=== PATIENT | female | born 1960 | race Caucasian/White ===

== ENCOUNTER 2017-01-16 23:28 | Emergency (ER) | payer SELFPAY ==
[~2017-01-16] VITALS: Ht 160 cm; Wt 59.0 kg
[2017-01-17 00:01] VITALS: BP 120/96
== END 2017-01-17 03:15 | disposition left against medical advice (07) ==
LOC: EDBD 23:28 → ER 23:30
DX: F41.9 Anxiety disorder, unspecified (principal); Z53.21 Procedure and treatment not carried out due to patient leaving prior to being seen by health care provider

== ENCOUNTER 2017-01-17 06:57 | Emergency (ER) | payer SELFPAY ==
[~2017-01-17] VITALS: Ht 162.6 cm; Wt 59.0 kg
[2017-01-17 07:15] VITALS: BP 135/72
== END 2017-01-17 08:25 | disposition home or self-care (01) ==
LOC: ER 06:57
DX: M79.1 Myalgia (principal); M54.2 Cervicalgia; F17.210 Nicotine dependence, cigarettes, uncomplicated; F12.10 Cannabis abuse, uncomplicated; F41.9 Anxiety disorder, unspecified; Z88.6 Allergy status to analgesic agent; Z88.0 Allergy status to penicillin; Z91.018 Allergy to other foods

== ENCOUNTER 2017-01-25 01:09 | Emergency (ER) | payer SELFPAY ==
[~2017-01-25] VITALS: Ht 162.6 cm; Wt 50.3 kg
[2017-01-25 01:11] VITALS: BP 96/75
== END 2017-01-25 07:02 | disposition left against medical advice (07) ==
LOC: ER 01:19
DX: Z01.818 Encounter for other preprocedural examination (principal); Z53.21 Procedure and treatment not carried out due to patient leaving prior to being seen by health care provider

== ENCOUNTER 2018-01-25 14:13 | Emergency (ER) | payer OTHER ==
[~2018-01-25] VITALS: Ht 154.9 cm; Wt 54.4 kg
[2018-01-25 14:55] VITALS: BP 142/86
[2018-01-25 15:54] LABS: Basophils # (auto) 0 uL; Basophils % (auto) 0.4 % (0.0-2.0); Eosinophils # (auto) 0.1 uL; Eosinophils % (auto) 1.9 % (0.0-7.0); Hematocrit 39.4 % (36.0-46.0); Hemoglobin 12.9 g/dL (12.2-16.2); Lymphocytes # (auto) 3.3 uL; Lymphocytes % (auto) 44.5 % (10.0-50.0); Mean Corpuscular Hemoglobin 30.7 pg (28.0-32.0); Mean Corpuscular Hgb Conc. 32.8 g/dL (32.0-36.0); Mean Corpuscular Volume 93.5 fL (80.0-100.0); Monocytes # (auto) 0.5 uL; Monocytes % (auto) 6.2 % (0.0-12.0); Neutrophils # (auto) 3.5 uL; Nucleated Red Blood Cells % 0.1 %; Platelet Count (auto) 405 10^3/uL (140-450); Red Blood Cells 4.21 10^6/uL (4.0-5.20); White Blood Cell 7.5 10^3/uL (4.4-10.8)
[2018-01-25 16:05] LABS: Chloride 111 mmol/L (98-107); Potassium 3.5 mmol/L (3.5-5.1); Sodium 140 mmol/L (136-145)
[2018-01-25 16:09] LABS: Alanine Aminotransferase 24 U/L (13-56); Albumin 3.6 g/dL (3.4-5.0); Anion Gap 6 (5-15); Aspartate Aminotransferase 19 U/L (15-37); BUN/Creatinine Ratio 21.3; Blood Urea Nitrogen 17 mg/dL (7-18); Calcium 8.8 mg/dL (8.5-10.1); Carbon Dioxide 23 mmol/L (21-32); GFR African American 96 mL/min; GFR Non-African American 79 mL/min; Glucose 79 mg/dL (74-106)
[2018-01-25 16:14] LABS: Alkaline Phosphatase 83 U/L (45-117); Bilirubin, Total 0.3 mg/dL (0.2-1.0); Total Protein 7.7 g/dL (6.4-8.2)
== END 2018-01-26 03:25 | disposition left against medical advice (07) ==
LOC: EDUNIT# 14:13 → ER 14:13
DX: F41.9 Anxiety disorder, unspecified (principal); Z53.21 Procedure and treatment not carried out due to patient leaving prior to being seen by health care provider
CPT/HCPCS: 36415; 80053; 80307; 84484; 85025; 93005

== ENCOUNTER 2019-12-26 14:31 | Emergency (ER) | payer OTHER ==
[~2019-12-26] VITALS: Ht 160 cm; Wt 49.9 kg
[2019-12-26 14:39] VITALS: BP 114/71
[2019-12-26] MEDS ORDERED: KETOROLAC TROMETH 60MG/2ML VIAL IM ONE (16:45)
== END 2019-12-26 17:17 | disposition home or self-care (01) ==
LOC: ER 14:31
DX: S20.212A Contusion of left front wall of thorax, initial encounter (principal); F17.210 Nicotine dependence, cigarettes, uncomplicated; Z88.0 Allergy status to penicillin; Z88.6 Allergy status to analgesic agent; Z88.8 Allergy status to other drugs, medicaments and biological substances; W01.0XXA Fall on same level from slipping, tripping and stumbling without subsequent striking against object, initial encounter; Y93.89 Activity, other specified; Y92.89 Other specified places as the place of occurrence of the external cause; Y99.8 Other external cause status
CPT/HCPCS: 71101; 93005; 96372; 99283; J1885

== ENCOUNTER 2020-03-22 09:51 | Emergency (ER) | payer OTHER ==
[~2020-03-22] VITALS: Ht 160 cm; Wt 46.3 kg
[2020-03-22 10:03] VITALS: BP 131/84
[2020-03-22] MEDS: ACETAMINOPHEN 325 MG TAB PO ONE ×2 (11:03→11:05)
[2020-03-22] MEDS ORDERED: KETOROLAC TROMETH 60MG/2ML VIAL IM ONE ×2 (11:15→11:30)
== END 2020-03-22 12:05 | disposition home or self-care (01) ==
LOC: ER 09:51 → EDBD 09:51 → ER 12:05
DX: S30.0XXA Contusion of lower back and pelvis, initial encounter (principal); J03.90 Acute tonsillitis, unspecified; J44.9 Chronic obstructive pulmonary disease, unspecified; F17.210 Nicotine dependence, cigarettes, uncomplicated; Z88.0 Allergy status to penicillin; Z88.1 Allergy status to other antibiotic agents; Z88.2 Allergy status to sulfonamides; Z88.5 Allergy status to narcotic agent; Z88.6 Allergy status to analgesic agent; Z88.8 Allergy status to other drugs, medicaments and biological substances
CPT/HCPCS: 71045; 72220; 96372; 99284; J1885

== ENCOUNTER 2020-04-07 11:25 | Emergency (ER) | payer OTHER ==
[~2020-04-07] VITALS: Ht 162.6 cm; Wt 40.8 kg
[2020-04-07] MEDS ORDERED: ONDANSETRON ODT 4 MG TAB PO ONE (12:00)
[2020-04-07 12:40] LABS: Alcohol, Urine < 3.0 mg/dL (0-10); Amphetamine Screen, Urine POSITIVE (NEGATIVE); Barbiturate Scree,Urine NEGATIVE (NEGATIVE); Benzodiazephine Screen, Urine NEGATIVE (NEGATIVE); Cannabinoid Screen, Urine POSITIVE (NEGATIVE); Cocaine Screen, Urine NEGATIVE (NEGATIVE)
[2020-04-07 12:48] LABS: Opiate Scree,Urine NEGATIVE (NEGATIVE); Phencyclidine Screen, Urine NEGATIVE (NEGATIVE)
[2020-04-07 13:02] LABS: Urine Bacteria NONE SEEN /hpf (None Seen); Urine Blood Negative /uL (Negative); Urine Specific Gravity 1.023 (1.001-1.035); Urine WBC <1 /hpf (0 - 5)
[2020-04-07 13:16] LABS: Basophils # (auto) 0 10 ^3/uL (0-0.2); Basophils % (auto) 0.6 % (0.0-2.0); Eosinophils # (auto) 0.1 10 ^3/uL (0-0.8); Eosinophils % (auto) 1.7 % (0.0-7.0); Hematocrit 38.1 % (36.0-46.0); Hemoglobin 12.4 g/dL (12.2-16.2); Lymphocytes # (auto) 2.3 10 ^3/uL (0.4-5.4); Lymphocytes % (auto) 43.3 % (10.0-50.0); Mean Corpuscular Hemoglobin 31.1 pg (28.0-32.0); Mean Corpuscular Hgb Conc. 32.5 g/dL (32.0-36.0); Mean Corpuscular Volume 95.7 fL (80.0-100.0); Monocytes # (auto) 0.5 10 ^3/uL (0-1.3); Monocytes % (auto) 8.6 % (0.0-12.0); Neutrophils # (auto) 2.5 10 ^3/uL (1.6-8.6); Neutrophils % (auto) 45.8 % (37.0-80.0); Nucleated Red Blood Cells % 0.1 %; Platelet Count (auto) 246 10^3/uL (140-450); Red Blood Cells 3.99 10^6/uL (4.0-5.20); Red Cell Distribution Width 14.4 % (11.8-14.3); White Blood Cell 5.4 10^3/uL (4.4-10.8)
[2020-04-07 13:32] LABS: Albumin 3.7 g/dL (3.4-5.0); Calcium 8.6 mg/dL (8.5-10.1); Potassium 3.9 mmol/L (3.5-5.1)
[2020-04-07 13:41] LABS: BUN/Creatinine Ratio 25.4; Bilirubin, Total 0.4 mg/dL (0.2-1.0); Total Protein 7.3 g/dL (6.4-8.2)
== END 2020-04-07 14:50 | disposition left against medical advice (07) ==
LOC: ER 11:25
DX: F15.10 Other stimulant abuse, uncomplicated (principal); F12.10 Cannabis abuse, uncomplicated; F17.210 Nicotine dependence, cigarettes, uncomplicated; J44.9 Chronic obstructive pulmonary disease, unspecified; Z90.710 Acquired absence of both cervix and uterus; Z88.0 Allergy status to penicillin; Z88.1 Allergy status to other antibiotic agents; Z88.2 Allergy status to sulfonamides; Z88.6 Allergy status to analgesic agent; Z88.8 Allergy status to other drugs, medicaments and biological substances
CPT/HCPCS: 36415; 80053; 80307; 81001; 83690; 85025; 99283; Q0162

== ENCOUNTER 2020-04-12 22:53 | Inpatient (IN) | payer OTHER ==
[~2020-04-12] VITALS: Ht 160 cm; Wt 45.0 kg
[2020-04-12 23:38] LABS: Basophils # (auto) 0.1 10 ^3/uL (0-0.2); Eosinophils # (auto) 0.1 10 ^3/uL (0-0.8); Hematocrit 34.2 % (36.0-46.0); Hemoglobin 11.4 g/dL (12.2-16.2); Lymphocytes # (auto) 2.2 10 ^3/uL (0.4-5.4); Lymphocytes % (auto) 42.4 % (10.0-50.0); Mean Corpuscular Hgb Conc. 33.5 g/dL (32.0-36.0); Mean Corpuscular Volume 95.5 fL (80.0-100.0); Monocytes # (auto) 0.4 10 ^3/uL (0-1.3); Neutrophils # (auto) 2.4 10 ^3/uL (1.6-8.6); Neutrophils % (auto) 47.6 % (37.0-80.0); Nucleated Red Blood Cells % 0.1 %; Platelet Count (auto) 237 10^3/uL (140-450); Red Blood Cells 3.58 10^6/uL (4.0-5.20); Red Cell Distribution Width 14.4 % (11.8-14.3); White Blood Cell 5.1 10^3/uL (4.4-10.8)
[2020-04-12 23:55] LABS: Alanine Aminotransferase 18 U/L (13-56); Albumin 3.2 g/dL (3.4-5.0); Anion Gap 6 (5-15); Aspartate Aminotransferase 13 U/L (15-37); BUN/Creatinine Ratio 27.2; Blood Urea Nitrogen 22 mg/dL (7-18); Calcium 8.2 mg/dL (8.5-10.1); Carbon Dioxide 23 mmol/L (21-32); Chloride 110 mmol/L (98-107); GFR African American 93 mL/min; GFR Non-African American 77 mL/min; Glucose 87 mg/dL (74-106); Potassium 3.5 mmol/L (3.5-5.1); Sodium 139 mmol/L (136-145)
[2020-04-13] LABS: Alkaline Phosphatase 73 U/L (45-117); Bilirubin, Total 0.3 mg/dL (0.2-1.0); Total Protein 6.7 g/dL (6.4-8.2)
[2020-04-13] MEDS ORDERED: ONDANSETRON HCL 4 MG/2 ML VIAL IV PRN (04:15)
[2020-04-13] MEDS ORDERED: ACETAMINOPHEN 325 MG TAB PO PRN (04:15)
[2020-04-13] MEDS ORDERED: NITROGLYCERIN 0.4 MG SL TAB SL PRN (04:15)
[2020-04-13] MEDS ORDERED: MORPHINE SULF INJ 2 MG/ML SYRINGE 1ML IV PRN (04:15)
[2020-04-13] MEDS ORDERED: CARVEDILOL 3.125 MG TAB PO ONE (05:30)
[2020-04-13] MEDS ORDERED: ASPirin 81 mg TAB PO ONE (05:30)
[2020-04-13] MEDS ORDERED: LISINOPRIL 10 MG TAB PO ONE (05:30)
--- NOTE | 2020-04-13 07:20 | NUR ---
OPENING SHIFT NOTES Assumed care of patient from night warehouse manager TYLOR Duran. Patient is resting in bed comfortably, no signs of distress noted, chest rise and fall is symmetrical, breathing is even and unlabored. Bed is locked, in the lowest position, side rails up x2 and call light is in reach.
--- NOTE | 2020-04-13 07:39 | NUR ---
PAGED HOSPITALIST REGARDING CARDIAC CONSULT Patient was admitted for chest pain, troponin is negative x2, pending 3rd troponin, Per MD Franco no cardiac consult at this time.
--- NOTE | 2020-04-13 08:16 | NUR ---
PATIENT UPDATED ON POC Verbalized understanding, all questions answered. Call light is in reach. Patient was encouraged to call for assistance as needed.
[2020-04-13 09:40] LABS: Basophils # (auto) 0 10 ^3/uL (0-0.2); Basophils % (auto) 0.6 % (0.0-2.0); Eosinophils # (auto) 0.1 10 ^3/uL (0-0.8); Eosinophils % (auto) 2.5 % (0.0-7.0); Hematocrit 38.9 % (36.0-46.0); Hemoglobin 12.5 g/dL (12.2-16.2); Lymphocytes # (auto) 1.8 10 ^3/uL (0.4-5.4); Lymphocytes % (auto) 34.7 % (10.0-50.0); Mean Corpuscular Hemoglobin 31.2 pg (28.0-32.0); Mean Corpuscular Hgb Conc. 32.1 g/dL (32.0-36.0); Mean Corpuscular Volume 97.2 fL (80.0-100.0); Monocytes # (auto) 0.3 10 ^3/uL (0-1.3); Monocytes % (auto) 6.3 % (0.0-12.0); Neutrophils # (auto) 2.8 10 ^3/uL (1.6-8.6); Neutrophils % (auto) 55.9 % (37.0-80.0); Nucleated Red Blood Cells % 0.1 %; Platelet Count (auto) 236 10^3/uL (140-450); Red Blood Cells 4.01 10^6/uL (4.0-5.20); Red Cell Distribution Width 14.3 % (11.8-14.3); White Blood Cell 5.1 10^3/uL (4.4-10.8)
[2020-04-13] MEDS: DOCUSATE SOD 100 MG CAP PO SCH (09:43)
[2020-04-13] MEDS: ASPirin 81 mg TAB PO SCH (09:43)
[2020-04-13] MEDS: LISINOPRIL 10 MG TAB PO SCH (09:44)
[2020-04-13] MEDS: CARVEDILOL 3.125 MG TAB PO SCH ×2 (09:44→22:09)
[2020-04-13] MEDS: CLOPIDOGREL BISULFATE 75 MG TAB PO SCH (09:44)
[2020-04-13 10:00] LABS: BUN/Creatinine Ratio 31.8; Calcium 8.5 mg/dL (8.5-10.1); Potassium 3.7 mmol/L (3.5-5.1)
[2020-04-13] MEDS: IPRATROPIUM BROM 0.5 MG/2.5ML INH SOL NEB PRN ×2 (10:24→10:47)
[2020-04-13] MEDS: ALBUTEROL SULF 2.5 MG/0.5ML(0.5%) NEB SOLN NEB PRN ×2 (10:24→10:47)
[2020-04-13 13:00] VITALS: BP 102/64
--- NOTE | 2020-04-13 13:08 | NUR ---
PATIENT AMBULATING AROUND THE UNIT With a steady gait, no signs of distress noted.
--- NOTE | 2020-04-13 15:03 | NUR ---
CORDELL AT BEDSIDE updated on the patient status, plan of care reviewed with patient and she verbalized understanding. New order for nicotine patch 14gm/24h.
[2020-04-13] MEDS ORDERED: NICOTINE 14 MG/24HR TOPICAL PATCH TD SCH (15:15)
--- NOTE | 2020-04-13 16:39 | NUR ---
PATIENT COMPLAINING OF ITCHING AT NICOTINE PATCH SITE NEW ORDER FOR 7GM/24H PATCH OBTAINED FROM CORDELL.
[2020-04-13 17:00] VITALS: BP 104/67
--- NOTE | 2020-04-13 17:02 | NUR ---
RADIOGRAPHIC TECHNOLOGIST AT BEDSIDE
[2020-04-13] MEDS: NICOTINE 7MG/24HR TOPICAL PATCH TD SCH (17:19)
--- NOTE | 2020-04-13 19:05 | NUR ---
Opening Shift Note Assumed care of patient, awake and alert. No S/S of distress/SOB or pain. Patient eating dinner. Instructed on POC and to call for assist PRN, will continue to monitor for changes Q1hr and PRN.
[2020-04-13 20:00] VITALS: BP 124/69
--- NOTE | 2020-04-13 20:20 | NUR ---
AMA Patient signed AMA to go outside. Educated on the risk or AMA.
[2020-04-13 22:00] VITALS: BP 124/69
[2020-04-13] MEDS: ATORVASTATIN 20 MG TAB PO SCH (22:10)
[2020-04-14 06:19] LABS: Basophils # (auto) 0 10 ^3/uL (0-0.2); Basophils % (auto) 0.9 % (0.0-2.0); Eosinophils # (auto) 0.2 10 ^3/uL (0-0.8); Eosinophils % (auto) 4.3 % (0.0-7.0); Hematocrit 38.8 % (36.0-46.0); Hemoglobin 12.8 g/dL (12.2-16.2); Lymphocytes # (auto) 1.7 10 ^3/uL (0.4-5.4); Lymphocytes % (auto) 46.1 % (10.0-50.0); Mean Corpuscular Hemoglobin 31.8 pg (28.0-32.0); Mean Corpuscular Hgb Conc. 33.1 g/dL (32.0-36.0); Monocytes # (auto) 0.3 10 ^3/uL (0-1.3); Monocytes % (auto) 8.4 % (0.0-12.0); Neutrophils # (auto) 1.5 10 ^3/uL (1.6-8.6); Neutrophils % (auto) 40.3 % (37.0-80.0); Nucleated Red Blood Cells % 0.1 %; Platelet Count (auto) 277 10^3/uL (140-450); Red Blood Cells 4.04 10^6/uL (4.0-5.20); Red Cell Distribution Width 14.2 % (11.8-14.3); White Blood Cell 3.8 10^3/uL (4.4-10.8)
[2020-04-14 06:31] LABS: Chloride 107 mmol/L (98-107); Potassium 3.8 mmol/L (3.5-5.1); Sodium 137 mmol/L (136-145)
[2020-04-14 07:02] LABS: Anion Gap 6 (5-15); BUN/Creatinine Ratio 30.6; Blood Urea Nitrogen 19 mg/dL (7-18); Calcium 9.1 mg/dL (8.5-10.1); Carbon Dioxide 24 mmol/L (21-32); GFR African American 127 mL/min; GFR Non-African American 105 mL/min; Glucose 88 mg/dL (74-106)
--- NOTE | 2020-04-14 07:10 | NUR ---
Closing Note Patient status unchanged, endorsed care to dayshift nurse.
--- NOTE | 2020-04-14 07:30 | NUR ---
RECEIVED REPORT FROM NIGHT NURSE. PATENT RESTING IN BED, NO DISTRESS NOTED. WILL CONTINUE TO MONITOR.
[2020-04-14 09:00] VITALS: BP 99/54
[2020-04-14] MEDS: ASPirin 81 mg TAB PO SCH (09:46)
[2020-04-14] MEDS: DOCUSATE SOD 100 MG CAP PO SCH (09:46)
[2020-04-14] MEDS: CLOPIDOGREL BISULFATE 75 MG TAB PO SCH (09:46)
[2020-04-14] MEDS: NICOTINE 7MG/24HR TOPICAL PATCH TD SCH (09:46)
[2020-04-14] MEDS: CARVEDILOL 3.125 MG TAB PO SCH ×2 (10:00→21:23)
[2020-04-14] MEDS: LISINOPRIL 10 MG TAB PO SCH (10:00)
--- NOTE | 2020-04-14 10:00 | NUR ---
PATIENT REFUSED 1000 BLOOD PRESSURE MEDICATIONS. STATED THAT HER BLOOD PRESSURE WAS TOO LOW TO TAKE IT. BLOOD PRESSURE 99/54,
--- NOTE | 2020-04-14 11:40 | NUR ---
DOCTOR LANDA AT BEDSIDE.
[2020-04-14 13:00] VITALS: BP 109/71
[2020-04-14 17:00] VITALS: BP 111/57
[2020-04-14] MEDS: ALBUTEROL SULF 2.5 MG/0.5ML(0.5%) NEB SOLN NEB PRN (20:26)
[2020-04-14] MEDS: IPRATROPIUM BROM 0.5 MG/2.5ML INH SOL NEB PRN (20:26)
[2020-04-14] MEDS: ATORVASTATIN 20 MG TAB PO SCH (21:23)
[2020-04-14 22:00] VITALS: BP 91/60
[2020-04-15] VITALS (7 sets, daily range): BP systolic 81–103; BP diastolic 61–79
--- NOTE | 2020-04-15 03:45 | NUR ---
Chest Pain Patient c/o 5/10 chest pain/discomfort "Its like a pressure on my chest".Patient place on 2L NC. Vital signs stable BP-113/68, MAP-86, HR-71, O-94%, T-98.3. EKG done "Abnormal results". Patient given 1st dose of nitro. After 5 mins patient stated to feel better "my cp is a 2-3" BP 98/71, HR-73. Patient refused 2nd dose of nitro. Will continue to monitor.
[2020-04-15 05:37] LABS: Basophils # (auto) 0 10 ^3/uL (0-0.2); Basophils % (auto) 0.7 % (0.0-2.0); Eosinophils # (auto) 0.2 10 ^3/uL (0-0.8); Eosinophils % (auto) 4.2 % (0.0-7.0); Hematocrit 40.6 % (36.0-46.0); Hemoglobin 13.6 g/dL (12.2-16.2); Lymphocytes # (auto) 1.9 10 ^3/uL (0.4-5.4); Lymphocytes % (auto) 49.3 % (10.0-50.0); Mean Corpuscular Hemoglobin 31.7 pg (28.0-32.0); Mean Corpuscular Hgb Conc. 33.4 g/dL (32.0-36.0); Mean Corpuscular Volume 94.9 fL (80.0-100.0); Monocytes # (auto) 0.3 10 ^3/uL (0-1.3); Monocytes % (auto) 8.1 % (0.0-12.0); Neutrophils # (auto) 1.4 10 ^3/uL (1.6-8.6); Neutrophils % (auto) 37.7 % (37.0-80.0); Nucleated Red Blood Cells % 0.1 %; Platelet Count (auto) 298 10^3/uL (140-450); Red Blood Cells 4.28 10^6/uL (4.0-5.20); Red Cell Distribution Width 14.1 % (11.8-14.3); White Blood Cell 3.8 10^3/uL (4.4-10.8)
[2020-04-15 06:00] LABS: BUN/Creatinine Ratio 40.7; Calcium 9.3 mg/dL (8.5-10.1); Potassium 3.8 mmol/L (3.5-5.1)
--- NOTE | 2020-04-15 06:43 | NUR ---
Respiratory note: NO PRN TX GIVEN AT THIS TIME, SPO2 95% ON RA, HR 62, RR 18.
--- NOTE | 2020-04-15 07:27 | NUR ---
Closing Note Patient status unchanged, endorsed care to dayshift nurse.
[2020-04-15] MEDS ORDERED: ADENOSINE 38 MG in GIVE UN-DILUTED 0 ML IV STA (08:45)
--- NOTE | 2020-04-15 09:04 | NUR ---
Assessment Regarding social service consult for homeless and advance directive information. Tele psych is recommended to assess mental status and will look into calling the felt hat steamer for print identification.
[2020-04-15] MEDS: CARVEDILOL 3.125 MG TAB PO SCH ×2 (09:13→21:27)
[2020-04-15] MEDS: LISINOPRIL 10 MG TAB PO SCH (09:13)
[2020-04-15] MEDS: ASPirin 81 mg TAB PO SCH (09:14)
[2020-04-15] MEDS: DOCUSATE SOD 100 MG CAP PO SCH (09:15)
[2020-04-15] MEDS: NICOTINE 7MG/24HR TOPICAL PATCH TD SCH (09:15)
[2020-04-15] MEDS: CLOPIDOGREL BISULFATE 75 MG TAB PO SCH (09:15)
[2020-04-15] MEDS ORDERED: SODIUM CHLORIDE 0.9% 250 ML IV ONE (13:30)
[2020-04-15] MEDS ORDERED: SODIUM CHLORIDE 0.9% 1,000 ML IV ONE (17:00)
--- NOTE | 2020-04-15 19:38 | NUR ---
Respiratory note: PT RECIEVED ON RA. PT IS AWAKE AND ALERT AT THIS TIME. NO RESP DISTRESS NOTED. PRN TX NOT INDICATED. SPO2 94%, HR 105, RR 18. BS CLR/DIM T/O. WILL CONTINUE TO MONITOR PT T/O SHIFT.
[2020-04-15] MEDS: ATORVASTATIN 20 MG TAB PO SCH (21:27)
[2020-04-15] MEDS ORDERED: risperiDONE 1 MG TAB PO SCH (22:00)
[2020-04-15] MEDS ORDERED: lamoTRIgine 25 MG TAB PO SCH (22:00)
--- NOTE | 2020-04-15 23:59 | NUR ---
No IV Access Patient ask for IV to be removed, patient stated "I don't want it, its on my dominate hand a keep bumping my hand, i want it off". Patient educated on the need to have IV in the hospital, patient agree to IV attempt. After 3 attempts patient got agitated and aggressive, patient stated "I don't want no more tries, i don't want it, i done, I will smack you if you try". Patient educated once again in the need for IV access but continues to refused. Paged hospitalist, waiting to call back.
--- NOTE | 2020-04-16 00:38 | NUR ---
Hospitalist Aware Hospitalist Curtis awared, no new orders given. Will continue to monitor.
[2020-04-16 05:09] VITALS: BP 125/70
[2020-04-16 06:12] LABS: Basophils # (auto) 0 10 ^3/uL (0-0.2); Basophils % (auto) 0.9 % (0.0-2.0); Eosinophils # (auto) 0.2 10 ^3/uL (0-0.8); Eosinophils % (auto) 4.5 % (0.0-7.0); Hematocrit 39.7 % (36.0-46.0); Hemoglobin 13.3 g/dL (12.2-16.2); Lymphocytes # (auto) 1.9 10 ^3/uL (0.4-5.4); Lymphocytes % (auto) 49.8 % (10.0-50.0); Mean Corpuscular Hemoglobin 31.9 pg (28.0-32.0); Mean Corpuscular Hgb Conc. 33.6 g/dL (32.0-36.0); Mean Corpuscular Volume 95.2 fL (80.0-100.0); Monocytes # (auto) 0.3 10 ^3/uL (0-1.3); Neutrophils # (auto) 1.4 10 ^3/uL (1.6-8.6); Neutrophils % (auto) 35.8 % (37.0-80.0); Platelet Count (auto) 298 10^3/uL (140-450); Red Blood Cells 4.17 10^6/uL (4.0-5.20); Red Cell Distribution Width 13.7 % (11.8-14.3); White Blood Cell 3.8 10^3/uL (4.4-10.8)
[2020-04-16 06:36] LABS: Potassium 3.8 mmol/L (3.5-5.1)
--- NOTE | 2020-04-16 07:20 | NUR ---
Closing Note Patient status unchanged, endorsed care to dayshift nurse.
--- NOTE | 2020-04-16 07:30 | NUR ---
Opening Shift Note Assumed care of patient, awake and alert. No S/S of distress/SOB or pain. Patient has no IV access at this time. Educated patient on importance of having IV access and patient still refused. Bed is low, locked with 2x side rails up. Call light is within reach. Instructed on POC and to call for assist PRN, will continue to monitor for changes Q1hr and PRN.
[2020-04-16 08:00] VITALS: BP 106/77
--- NOTE | 2020-04-16 09:15 | NUR ---
AMA Note GEO CROOK states she wants to leave the hospital Against Medical Advice (AMA). Patient encouraged to stay for further treatment/stabilization. Patient advised of the risks and benefits of leaving AMA. Patient verbalized understanding. Telemetry box returned to ICU. Patient encouraged to return to the ER if symptoms do not improve or worsen. No distress noted upon departure. Paging hospitalist to make him aware of patients decision to leave AMA. Waiting for call back.
== END 2020-04-16 09:15 | disposition left against medical advice (07) | DRG 203 ==
LOC: EDBD 22:53 → ER 22:53 → TELE 22:54 → EDUNIT# 22:54 → TELE-WESTW 04-13 06:40
PROVIDERS: ADMIT Hospitalist; ATTEND Internal Medicine
DX: M94.0 Chondrocostal junction syndrome [Tietze] (principal); N17.0 Acute kidney failure with tubular necrosis; J44.9 Chronic obstructive pulmonary disease, unspecified; S01.81XA Laceration without foreign body of other part of head, initial encounter; F17.200 Nicotine dependence, unspecified, uncomplicated; F41.9 Anxiety disorder, unspecified; I12.9 Hypertensive chronic kidney disease with stage 1 through stage 4 chronic kidney disease, or unspecified chronic kidney disease; I25.10 Atherosclerotic heart disease of native coronary artery without angina pectoris; I25.2 Old myocardial infarction; N18.9 Chronic kidney disease, unspecified; T14.8XXA Other injury of unspecified body region, initial encounter; Z86.73 Personal history of transient ischemic attack (TIA), and cerebral infarction without residual deficits; Z59.0 Homelessness; Z85.9 Personal history of malignant neoplasm, unspecified; Z53.29 Procedure and treatment not carried out because of patient's decision for other reasons; Z88.8 Allergy status to other drugs, medicaments and biological substances; Z88.6 Allergy status to analgesic agent; Z88.5 Allergy status to narcotic agent; Z91.013 Allergy to seafood; Z81.8 Family history of other mental and behavioral disorders; X58.XXXA Exposure to other specified factors, initial encounter; Y93.89 Activity, other specified; Y92.89 Other specified places as the place of occurrence of the external cause; Y99.8 Other external cause status; R09.1 Pleurisy
CPT/HCPCS: 36415; 71045; 78452; 80048; 80053; 80061; 83735; 83880; 84443; 84484; 85025; 87081; 93005; 93017; 93306; 94640; G0378; J0153

== ENCOUNTER 2020-09-06 13:38 | Emergency (ER) | payer OTHER ==
[~2020-09-06] VITALS: Ht 162.6 cm; Wt 49.9 kg
[2020-09-06 13:56] VITALS: BP 115/75
== END 2020-09-06 18:42 | disposition left against medical advice (07) ==
LOC: EDBD 13:38 → ER 13:38
DX: F41.9 Anxiety disorder, unspecified (principal); M79.18 Myalgia, other site; J44.9 Chronic obstructive pulmonary disease, unspecified; I10 Essential (primary) hypertension; I25.2 Old myocardial infarction; Z88.6 Allergy status to analgesic agent; Z91.018 Allergy to other foods; Z88.1 Allergy status to other antibiotic agents; Z88.5 Allergy status to narcotic agent; Z88.8 Allergy status to other drugs, medicaments and biological substances; Z88.0 Allergy status to penicillin; Z88.2 Allergy status to sulfonamides; Z91.013 Allergy to seafood; Z86.73 Personal history of transient ischemic attack (TIA), and cerebral infarction without residual deficits
CPT/HCPCS: 71045

== ENCOUNTER 2020-09-07 01:43 | Emergency (ER) | payer OTHER ==
[~2020-09-07] VITALS: Ht 162.6 cm; Wt 49.9 kg
[2020-09-07 03:03] VITALS: BP 127/85
== END 2020-09-07 02:51 | disposition left against medical advice (07) ==
LOC: ER 01:47
DX: M79.602 Pain in left arm (principal); M79.605 Pain in left leg; Z53.21 Procedure and treatment not carried out due to patient leaving prior to being seen by health care provider; V87.8XXA Person injured in other specified noncollision transport accidents involving motor vehicle (traffic), initial encounter; Y93.39 Activity, other involving climbing, rappelling and jumping off; Y92.89 Other specified places as the place of occurrence of the external cause; Y99.8 Other external cause status

== ENCOUNTER 2022-03-05 01:22 | Emergency (ER) | payer OTHER ==
[~2022-03-05] VITALS: Ht 160 cm; Wt 40.8 kg
[2022-03-05] MEDS ORDERED: HALOPERIDOL LACTATE 5 MG/ML INJ VIAL IM ONE (03:15)
[2022-03-05] MEDS ORDERED: diphenhdrAMINE HCL 50 MG/1 ML VL IV ONE (03:15)
[2022-03-05] MEDS ORDERED: LORazepam 2MG/ML-1ML VIAL IM ONE (03:15)
[2022-03-05 04:07] LABS: Basophils # (auto) 0 10 ^3/uL (0-0.2); Basophils % (auto) 0.4 % (0.0-2.0); Eosinophils # (auto) 0 10 ^3/uL (0-0.8); Eosinophils % (auto) 0.5 % (0.0-7.0); Hematocrit 38.3 % (36.0-46.0); Hemoglobin 13.1 g/dL (12.2-16.2); Lymphocytes # (auto) 1.6 10 ^3/uL (0.4-5.4); Lymphocytes % (auto) 18.6 % (10.0-50.0); Mean Corpuscular Hemoglobin 31.6 pg (28.0-32.0); Mean Corpuscular Hgb Conc. 34.3 g/dL (32.0-36.0); Mean Corpuscular Volume 92.3 fL (80.0-100.0); Monocytes # (auto) 0.6 10 ^3/uL (0-1.3); Monocytes % (auto) 7.3 % (0.0-12.0); Neutrophils # (auto) 6.1 10 ^3/uL (1.6-8.6); Neutrophils % (auto) 73.2 % (37.0-80.0); Nucleated Red Blood Cells % 0.1 %; Red Blood Cells 4.15 10^6/uL (4.0-5.20); White Blood Cell 8.4 10^3/uL (4.4-10.8)
[2022-03-05 04:29] LABS: Alanine Aminotransferase 50 U/L (13-56); Albumin 3.7 g/dL (3.4-5.0); Anion Gap 13 (5-15); Aspartate Aminotransferase 21 U/L (15-37); BUN/Creatinine Ratio 31.8; Blood Urea Nitrogen 41 mg/dL (7-18); Calcium 9.8 mg/dL (8.5-10.1); Carbon Dioxide 27 mmol/L (21-32); Chloride 97 mmol/L (98-107); GFR African American 54 mL/min; GFR Non-African American 45 mL/min; Glucose 131 mg/dL (74-106); Potassium 3.8 mmol/L (3.5-5.1); Sodium 137 mmol/L (136-145)
[2022-03-05 04:31] LABS: Alkaline Phosphatase 90 U/L (45-117); Total Protein 8.3 g/dL (6.4-8.2)
[2022-03-05 04:33] LABS: Salicylate < 1.7 mg/dL (2.8-20.0)
[2022-03-05 04:36] LABS: Blood Alcohol < 3.0 mg/dL (0-5)
[2022-03-05 04:37] LABS: Acetaminophen < 2.0 ug/mL (10-30)
[2022-03-05] MEDS ORDERED: OLAN20TA PO ×2 (15:54)
[2022-03-05 16:00] VITALS: BP 98/47
== END 2022-03-05 17:44 | disposition home or self-care (01) ==
LOC: EDBD 01:22 → ER 01:22 → EDUNIT# 01:22 → ER 17:44
DX: R31.9 Hematuria, unspecified (principal); R45.850 Homicidal ideations; F41.9 Anxiety disorder, unspecified; K94.00 Colostomy complication, unspecified; J44.9 Chronic obstructive pulmonary disease, unspecified; I10 Essential (primary) hypertension; I25.2 Old myocardial infarction; Z86.73 Personal history of transient ischemic attack (TIA), and cerebral infarction without residual deficits
CPT/HCPCS: 36415; 74176; 80053; 80320; 80329; 85025; 96372; 96374; 99285; J1200; J1630; J2060

== ENCOUNTER 2022-03-05 19:23 | Emergency (ER) | payer OTHER ==
[~2022-03-05] VITALS: Ht 165.1 cm; Wt 34.9 kg
[~2022-03-05 19:23] MED LIST: OLAN20TA PO
[2022-03-05 20:30] VITALS: BP 96/62
== END 2022-03-05 23:10 | disposition home or self-care (01) ==
LOC: ER 19:23 → EDBD 19:23 → ER 23:10
DX: R53.1 Weakness (principal); I10 Essential (primary) hypertension; I25.2 Old myocardial infarction; J44.9 Chronic obstructive pulmonary disease, unspecified; Z79.899 Other long term (current) drug therapy; Z88.0 Allergy status to penicillin; Z88.1 Allergy status to other antibiotic agents; Z88.5 Allergy status to narcotic agent; Z88.6 Allergy status to analgesic agent; Z91.013 Allergy to seafood; Z88.8 Allergy status to other drugs, medicaments and biological substances

== ENCOUNTER 2022-03-19 16:42 | Emergency (ER) | payer OTHER ==
[~2022-03-19] VITALS: Ht 162.6 cm; Wt 33.6 kg
[2022-03-19 22:05] VITALS: BP 135/87
== END 2022-03-20 00:17 | disposition home or self-care (01) ==
LOC: EDBD 16:42 → ER 16:53
DX: M25.551 Pain in right hip (principal); M79.18 Myalgia, other site; J44.9 Chronic obstructive pulmonary disease, unspecified; I10 Essential (primary) hypertension; F12.10 Cannabis abuse, uncomplicated; F15.10 Other stimulant abuse, uncomplicated; Z88.0 Allergy status to penicillin; Z88.1 Allergy status to other antibiotic agents; Z88.2 Allergy status to sulfonamides; Z91.013 Allergy to seafood; Z86.73 Personal history of transient ischemic attack (TIA), and cerebral infarction without residual deficits; W01.0XXA Fall on same level from slipping, tripping and stumbling without subsequent striking against object, initial encounter; Y93.89 Activity, other specified; Y92.89 Other specified places as the place of occurrence of the external cause; Y99.8 Other external cause status
CPT/HCPCS: 73502

== ENCOUNTER 2022-03-20 03:29 | Emergency (ER) | payer OTHER ==
[~2022-03-20] VITALS: Ht 162.6 cm; Wt 43.1 kg
[2022-03-20 04:05] VITALS: BP 102/70
[2022-03-20] MEDS ORDERED: HALOPERIDOL LACTATE 5 MG/ML INJ VIAL IM ONE (07:15)
[2022-03-20] MEDS ORDERED: PROMETHAZINE HCL 25 MG/ML 1ML IV PRN (07:15)
[2022-03-20] MEDS ORDERED: diphenhdrAMINE HCL 50 MG/1 ML VL IV ONE (07:15)
[2022-03-20] MEDS ORDERED: SODIUM CHLORIDE 0.9% 1,000 ML IVB ONE (07:15)
[2022-03-20] MEDS ORDERED: HYDROmorphone HCL 2 MG/ML VL/or syr IM ONE (11:15)
[2022-03-20] MEDS ORDERED: diphenhdrAMINE HCL 50 MG/1 ML VL IM ONE (11:15)
== END 2022-03-20 15:02 | disposition left against medical advice (07) ==
LOC: EDBD 03:29 → EDUNIT# 03:29 → ER 03:29
DX: F31.9 Bipolar disorder, unspecified (principal); F91.1 Conduct disorder, childhood-onset type; Z43.3 Encounter for attention to colostomy; J44.9 Chronic obstructive pulmonary disease, unspecified; I10 Essential (primary) hypertension; I25.2 Old myocardial infarction; Z86.73 Personal history of transient ischemic attack (TIA), and cerebral infarction without residual deficits; Z59.00 Homelessness unspecified; Z79.899 Other long term (current) drug therapy; Z88.0 Allergy status to penicillin; Z88.1 Allergy status to other antibiotic agents; Z88.2 Allergy status to sulfonamides; Z88.8 Allergy status to other drugs, medicaments and biological substances; Z91.013 Allergy to seafood; Z88.6 Allergy status to analgesic agent
CPT/HCPCS: 71045; 93005; 96372; 99284; J1200; J1630

== ENCOUNTER 2022-04-17 16:47 | Inpatient (IN) | payer OTHER ==
[~2022-04-17] VITALS: Ht 160 cm; Wt 44.5 kg
[2022-04-17] MEDS ORDERED: LACTATED RINGER'S 1,000 ML IV ONE (19:30)
[2022-04-17 21:41] LABS: Basophils # (auto) 0.1 10 ^3/uL (0-0.2); Basophils % (auto) 0.5 % (0.0-2.0); Eosinophils # (auto) 0.2 10 ^3/uL (0-0.8); Eosinophils % (auto) 2.1 % (0.0-7.0); Hemoglobin 13.8 g/dL (12.2-16.2); Lymphocytes % (auto) 29.8 % (10.0-50.0); Mean Corpuscular Hemoglobin 31.4 pg (28.0-32.0); Mean Corpuscular Volume 95.1 fL (80.0-100.0); Monocytes # (auto) 1.1 10 ^3/uL (0-1.3); Monocytes % (auto) 11.3 % (0.0-12.0); Neutrophils # (auto) 5.6 10 ^3/uL (1.6-8.6); Neutrophils % (auto) 56.3 % (37.0-80.0); Nucleated Red Blood Cells % 0.1 %; Red Blood Cells 4.41 10^6/uL (4.0-5.20); Red Cell Distribution Width 14.9 % (11.8-14.3); White Blood Cell 9.9 10^3/uL (4.4-10.8)
[2022-04-17 22:09] LABS: Albumin 3.7 g/dL (3.4-5.0); Calcium 10.1 mg/dL (8.5-10.1); Magnesium 2.2 mg/dL (1.6-2.6); Potassium 3.9 mmol/L (3.5-5.1)
[2022-04-17 22:12] LABS: BUN/Creatinine Ratio 30.6; Bilirubin, Total 0.6 mg/dL (0.2-1.0); Total Protein 9.4 g/dL (6.4-8.2)
[2022-04-17] MEDS ORDERED: SODIUM CHLORIDE 0.9% 1,000 ML IV SCH (23:00)
[2022-04-17] MEDS ORDERED: ONDANSETRON HCL 4 MG/2 ML VIAL IV PRN (23:00)
[2022-04-17] MEDS ORDERED: DOCUSATE SOD 100 MG CAP PO PRN (23:00)
[2022-04-17] MEDS ORDERED: MORPHINE SULFATE INJ 2 MG/ml SYRG IV PRN (23:30)
[2022-04-17] MEDS ORDERED: NITROGLYCERIN 0.4 MG SL TAB SL PRN (23:30)
[2022-04-18] MEDS ORDERED: OLANZapine 5 MG TAB PO ONE
[2022-04-18] MEDS: ACETAMINOPHEN 325 MG TAB PO PRN ×2 (00:18→14:30)
[2022-04-18 07:02] LABS: Eosinophils # (auto) 0.2 10 ^3/uL (0-0.8)
[2022-04-18 07:04] LABS: Basophils # (auto) 0.1 10 ^3/uL (0-0.2); Basophils % (auto) 0.6 % (0.0-2.0); Hematocrit 43.7 % (36.0-46.0); Hemoglobin 14.5 g/dL (12.2-16.2); Lymphocytes % (auto) 31.4 % (10.0-50.0); Mean Corpuscular Hemoglobin 31.1 pg (28.0-32.0); Mean Corpuscular Hgb Conc. 33.1 g/dL (32.0-36.0); Mean Corpuscular Volume 93.8 fL (80.0-100.0); Monocytes # (auto) 0.8 10 ^3/uL (0-1.3); Monocytes % (auto) 8.7 % (0.0-12.0); Neutrophils # (auto) 5.4 10 ^3/uL (1.6-8.6); Neutrophils % (auto) 57.3 % (37.0-80.0); Nucleated Red Blood Cells % 0.1 %; Red Blood Cells 4.66 10^6/uL (4.0-5.20); Red Cell Distribution Width 14.8 % (11.8-14.3); White Blood Cell 9.5 10^3/uL (4.4-10.8)
[2022-04-18 07:23] LABS: Albumin 3.8 g/dL (3.4-5.0); Calcium 9.8 mg/dL (8.5-10.1); Potassium 3.5 mmol/L (3.5-5.1)
[2022-04-18 07:26] LABS: BUN/Creatinine Ratio 38.8; Bilirubin, Total 0.6 mg/dL (0.2-1.0); Total Protein 9.5 g/dL (6.4-8.2)
[2022-04-18 09:00] VITALS: BP 101/74
[2022-04-18] MEDS: FAMOTIDINE (10MG/ML) 2ML VL IV SCH (10:25)
[2022-04-18] MEDS: ENOXAPARIN SOD 40 MG/0.4 ML SYRINGE SC SCH (10:26)
[2022-04-18] MEDS: OLANZapine 5 MG TAB PO SCH ×2 (10:26→22:29)
[2022-04-18] MEDS ORDERED: D5W/ SOD CHL 0.9%/KCL 20MEQ 1,000 ML IV ONE (11:00)
[2022-04-18] MEDS ORDERED: IBUP400T23 PO (11:25)
[2022-04-18 17:00] VITALS: BP 134/84
[2022-04-18 21:21] VITALS: BP 130/90
[2022-04-19 04:34] VITALS: BP 130/80
[2022-04-19] MEDS: ACETAMINOPHEN 325 MG TAB PO PRN (05:14)
[2022-04-19 08:00] VITALS: BP 104/67
[2022-04-19 09:00] VITALS: BP 104/67
[2022-04-19] MEDS: ENOXAPARIN SOD 40 MG/0.4 ML SYRINGE SC SCH (09:54)
[2022-04-19] MEDS: FAMOTIDINE (10MG/ML) 2ML VL IV SCH (09:55)
[2022-04-19] MEDS: OLANZapine 5 MG TAB PO SCH ×2 (09:55→22:18)
[2022-04-19 11:09] LABS: Urine Bacteria FEW /hpf (None Seen); Urine Blood Negative /uL (Negative); Urine Hyaline Cast FEW /lpf (0 - 2); Urine Specific Gravity 1.025 (1.001-1.035); Urine WBC 1 /hpf (0 - 5)
[2022-04-19] MEDS ORDERED: VANCOMYCIN PER PHARMACY 0 MG IV SCH (11:15)
[2022-04-19] MEDS ORDERED: VANCOMYCIN 1GM/250ML 250 ML IV ONE (11:15)
[2022-04-19] MEDS: D5W/ SOD CHL 0.9%/KCL 20MEQ 1,000 ML IV SCH ×2 (11:32→22:22)
[2022-04-19] MEDS: HYDROcodone-ACET 5/325MG TAB PO PRN ×3 (12:30→20:26)
[2022-04-19 13:00] VITALS: BP 103/70
[2022-04-19 14:17] LABS: Albumin 3.4 g/dL (3.4-5.0); BUN/Creatinine Ratio 45.3; Calcium 9.3 mg/dL (8.5-10.1); Phosphorus 2.9 mg/dL (2.5-4.90); Potassium 4.1 mmol/L (3.5-5.1)
[2022-04-19] MEDS: Ensure Enlive Strawberry 8oz Bottle PO SCH ×2 (16:17→18:08)
[2022-04-19 17:15] VITALS: BP 134/74
[2022-04-19 22:03] VITALS: BP 135/74
[2022-04-20] MEDS: HYDROcodone-ACET 5/325MG TAB PO PRN ×4 (01:42→15:06)
[2022-04-20] MEDS: D5W/ SOD CHL 0.9%/KCL 20MEQ 1,000 ML IV SCH ×2 (03:55→17:01)
[2022-04-20 06:05] LABS: Basophils # (auto) 0.1 10 ^3/uL (0-0.2); Basophils % (auto) 0.9 % (0.0-2.0); Eosinophils # (auto) 0.5 10 ^3/uL (0-0.8); Eosinophils % (auto) 7.1 % (0.0-7.0); Hematocrit 37.7 % (36.0-46.0); Hemoglobin 12.1 g/dL (12.2-16.2); Lymphocytes # (auto) 1.7 10 ^3/uL (0.4-5.4); Lymphocytes % (auto) 23.6 % (10.0-50.0); Mean Corpuscular Hemoglobin 30.7 pg (28.0-32.0); Mean Corpuscular Hgb Conc. 32.1 g/dL (32.0-36.0); Mean Corpuscular Volume 95.6 fL (80.0-100.0); Monocytes # (auto) 0.8 10 ^3/uL (0-1.3); Monocytes % (auto) 11.5 % (0.0-12.0); Neutrophils # (auto) 4.2 10 ^3/uL (1.6-8.6); Neutrophils % (auto) 56.9 % (37.0-80.0); Red Blood Cells 3.94 10^6/uL (4.0-5.20); White Blood Cell 7.3 10^3/uL (4.4-10.8)
[2022-04-20 06:12] LABS: Albumin 2.7 g/dL (3.4-5.0); Calcium 8.4 mg/dL (8.5-10.1); Potassium 4.2 mmol/L (3.5-5.1)
[2022-04-20 06:15] LABS: Phosphorus 2.4 mg/dL (2.5-4.90)
[2022-04-20 06:21] LABS: BUN/Creatinine Ratio 61.9
[2022-04-20 08:00] VITALS: BP 92/61
[2022-04-20 09:00] VITALS: BP 92/61
[2022-04-20] MEDS: FAMOTIDINE (10MG/ML) 2ML VL IV SCH (10:12)
[2022-04-20] MEDS: OLANZapine 5 MG TAB PO SCH ×2 (10:12→21:45)
[2022-04-20] MEDS: Ensure Enlive Strawberry 8oz Bottle PO SCH ×3 (10:12→18:25)
[2022-04-20] MEDS: ENOXAPARIN SOD 40 MG/0.4 ML SYRINGE SC SCH (10:13)
[2022-04-20] MEDS: VANCOMYCIN 1GM/250ML 250 ML IV SCH (11:30)
[2022-04-20 13:00] VITALS: BP 92/50
[2022-04-20 17:00] VITALS: BP 88/49
[2022-04-20 20:00] VITALS: BP 99/53
[2022-04-20 22:00] VITALS: BP 99/53
[2022-04-21] MEDS: D5W/ SOD CHL 0.9%/KCL 20MEQ 1,000 ML IV SCH ×4 (01:19→22:25)
[2022-04-21 05:01] VITALS: BP 104/48
[2022-04-21 08:00] VITALS: BP 94/52
[2022-04-21] MEDS: Ensure Enlive Strawberry 8oz Bottle PO SCH ×3 (09:33→18:05)
[2022-04-21] MEDS: HYDROcodone-ACET 5/325MG TAB PO PRN ×3 (09:33→22:30)
[2022-04-21] MEDS: FAMOTIDINE (10MG/ML) 2ML VL IV SCH (09:33)
[2022-04-21] MEDS: OLANZapine 5 MG TAB PO SCH ×2 (09:33→22:25)
[2022-04-21] MEDS: ENOXAPARIN SOD 40 MG/0.4 ML SYRINGE SC SCH (09:34)
[2022-04-21] MEDS: VANCOMYCIN 1GM/250ML 250 ML IV SCH (11:06)
[2022-04-21 12:00] VITALS: BP 98/52
[2022-04-21 16:00] VITALS: BP 101/56
[2022-04-21] MEDS: ACETAMINOPHEN 325 MG TAB PO PRN (18:05)
[2022-04-21 21:30] VITALS: BP 83/89
[2022-04-22] MEDS: HYDROcodone-ACET 5/325MG TAB PO PRN ×3 (02:54→21:31)
[2022-04-22 05:05] VITALS: BP 86/47
[2022-04-22] MEDS: D5W/ SOD CHL 0.9%/KCL 20MEQ 1,000 ML IV SCH ×3 (07:02→23:12)
[2022-04-22 09:00] VITALS: BP 94/48
[2022-04-22] MEDS: OLANZapine 5 MG TAB PO SCH ×2 (09:40→21:24)
[2022-04-22] MEDS: Ensure Enlive Strawberry 8oz Bottle PO SCH ×3 (09:40→17:19)
[2022-04-22] MEDS: FAMOTIDINE (10MG/ML) 2ML VL IV SCH (09:40)
[2022-04-22] MEDS: ENOXAPARIN SOD 40 MG/0.4 ML SYRINGE SC SCH (09:41)
[2022-04-22] MEDS: VANCOMYCIN 1GM/250ML 250 ML IV SCH (11:17)
[2022-04-22 13:00] VITALS: BP 97/55
[2022-04-22 16:42] VITALS: BP 90/51
[2022-04-22 22:00] VITALS: BP 99/50
[2022-04-22] MEDS: VANCOMYCIN 750mg/250ml 250 ML IV SCH (23:11)
[2022-04-23 05:00] VITALS: BP 94/58
[2022-04-23] MEDS: D5W/ SOD CHL 0.9%/KCL 20MEQ 1,000 ML IV SCH ×2 (06:48→15:02)
[2022-04-23] MEDS: HYDROcodone-ACET 5/325MG TAB PO PRN ×3 (08:03→20:09)
[2022-04-23] MEDS: Ensure Enlive Strawberry 8oz Bottle PO SCH ×3 (08:25→18:18)
[2022-04-23 09:42] VITALS: BP 128/63
[2022-04-23] MEDS: VANCOMYCIN 750mg/250ml 250 ML IV SCH (10:59)
[2022-04-23] MEDS: OLANZapine 5 MG TAB PO SCH ×2 (10:59→23:29)
[2022-04-23] MEDS: FAMOTIDINE (10MG/ML) 2ML VL IV SCH (10:59)
[2022-04-23] MEDS: ACETAMINOPHEN 325 MG TAB PO PRN ×2 (11:00→19:05)
[2022-04-23] MEDS: ENOXAPARIN SOD 40 MG/0.4 ML SYRINGE SC SCH (11:00)
[2022-04-23 13:23] VITALS: BP 97/52
[2022-04-23 17:21] VITALS: BP 88/38
[2022-04-23] MEDS: LINEZOLID 600MG/300ML 300 ML IV SCH (17:38)
[2022-04-23] MEDS ORDERED: MEROPENEM 500MG IVPB 50 ML IV SCH (18:00)
[2022-04-23] MEDS ORDERED: MEROPENEM 1GM IVPB 100 ML IV SCH (18:00)
[2022-04-23] MEDS: MEROPENEM 1GM IVPB 100 ML IV SCH (20:44)
[2022-04-23 22:00] VITALS: BP_DIAS 35
[2022-04-24] VITALS (7 sets, daily range): BP systolic 82–114; BP diastolic 37–84
[2022-04-24] MEDS: D5W/ SOD CHL 0.9%/KCL 20MEQ 1,000 ML IV SCH ×3 (00:56→17:53)
[2022-04-24] MEDS: HYDROcodone-ACET 5/325MG TAB PO PRN ×4 (01:20→20:40)
[2022-04-24] MEDS: LINEZOLID 600MG/300ML 300 ML IV SCH ×2 (04:45→17:01)
[2022-04-24] MEDS: MEROPENEM 1GM IVPB 100 ML IV SCH ×2 (09:06→20:50)
[2022-04-24] MEDS: Ensure Enlive Strawberry 8oz Bottle PO SCH ×3 (09:06→18:14)
[2022-04-24] MEDS: OLANZapine 5 MG TAB PO SCH ×2 (09:53→22:50)
[2022-04-24] MEDS: FAMOTIDINE (10MG/ML) 2ML VL IV SCH (09:53)
[2022-04-24] MEDS: ENOXAPARIN SOD 40 MG/0.4 ML SYRINGE SC SCH (09:54)
[2022-04-24] MEDS ORDERED: SODIUM CHLORIDE 0.9% 250 ML IV ONE (18:45)
[2022-04-25] MEDS: HYDROcodone-ACET 5/325MG TAB PO PRN ×6 (02:00→20:22)
[2022-04-25] MEDS: LINEZOLID 600MG/300ML 300 ML IV SCH ×2 (04:18→17:21)
[2022-04-25] MEDS: D5W/ SOD CHL 0.9%/KCL 20MEQ 1,000 ML IV SCH ×2 (04:19→09:04)
[2022-04-25 05:00] VITALS: BP 95/47
[2022-04-25 08:00] VITALS: BP 86/42
[2022-04-25] MEDS: ACETAMINOPHEN 325 MG TAB PO PRN (08:43)
[2022-04-25] MEDS: MEROPENEM 1GM IVPB 100 ML IV SCH ×2 (08:43→20:03)
[2022-04-25] MEDS: Ensure Enlive Strawberry 8oz Bottle PO SCH ×3 (08:44→18:03)
[2022-04-25 09:00] VITALS: BP 86/42
[2022-04-25] MEDS: ENOXAPARIN SOD 40 MG/0.4 ML SYRINGE SC SCH (10:31)
[2022-04-25] MEDS: FAMOTIDINE (10MG/ML) 2ML VL IV SCH (10:32)
[2022-04-25] MEDS: OLANZapine 5 MG TAB PO SCH ×2 (10:32→21:40)
[2022-04-25] MEDS: SODIUM CHLORIDE 0.9% 1,000 ML IV SCH ×2 (10:33→18:02)
[2022-04-25 13:00] VITALS: BP 113/53
[2022-04-25 17:00] VITALS: BP 99/56
[2022-04-25 21:36] VITALS: BP 94/50
[2022-04-26] MEDS: SODIUM CHLORIDE 0.9% 1,000 ML IV SCH ×3 (02:04→17:45)
[2022-04-26 04:54] VITALS: BP 90/45
[2022-04-26] MEDS: LINEZOLID 600MG/300ML 300 ML IV SCH ×2 (05:04→16:10)
[2022-04-26] MEDS: HYDROcodone-ACET 5/325MG TAB PO PRN (05:05)
[2022-04-26 06:39] LABS: Basophils # (auto) 0 10 ^3/uL (0-0.2); Basophils % (auto) 0.6 % (0.0-2.0); Eosinophils # (auto) 0.7 10 ^3/uL (0-0.8); Eosinophils % (auto) 11.5 % (0.0-7.0); Hematocrit 31.4 % (36.0-46.0); Hemoglobin 10.4 g/dL (12.2-16.2); Lymphocytes # (auto) 2.1 10 ^3/uL (0.4-5.4); Lymphocytes % (auto) 34.6 % (10.0-50.0); Mean Corpuscular Hemoglobin 31.7 pg (28.0-32.0); Mean Corpuscular Hgb Conc. 33.3 g/dL (32.0-36.0); Mean Corpuscular Volume 95.1 fL (80.0-100.0); Monocytes # (auto) 0.7 10 ^3/uL (0-1.3); Monocytes % (auto) 11.1 % (0.0-12.0); Neutrophils # (auto) 2.5 10 ^3/uL (1.6-8.6); Neutrophils % (auto) 42.2 % (37.0-80.0); Nucleated Red Blood Cells % 0.1 %
[2022-04-26 06:56] LABS: Albumin 2.2 g/dL (3.4-5.0)
[2022-04-26 07:01] LABS: BUN/Creatinine Ratio 33.3; Bilirubin, Total 0.1 mg/dL (0.2-1.0); Total Protein 5.8 g/dL (6.4-8.2)
[2022-04-26] MEDS: ENOXAPARIN SOD 40 MG/0.4 ML SYRINGE SC SCH (08:44)
[2022-04-26] MEDS: FAMOTIDINE (10MG/ML) 2ML VL IV SCH (08:45)
[2022-04-26] MEDS: OLANZapine 5 MG TAB PO SCH ×2 (08:45→21:39)
[2022-04-26] MEDS: Ensure Enlive Strawberry 8oz Bottle PO SCH ×3 (08:46→18:00)
[2022-04-26] MEDS: MEROPENEM 1GM IVPB 100 ML IV SCH ×2 (08:46→21:19)
[2022-04-26 09:00] VITALS: BP 102/46
[2022-04-26 13:00] VITALS: BP 92/52
[2022-04-26 17:00] VITALS: BP 81/34
[2022-04-26 22:00] VITALS: BP 95/46
[2022-04-27] MEDS: SODIUM CHLORIDE 0.9% 1,000 ML IV SCH ×2 (00:14→09:14)
[2022-04-27] MEDS: LINEZOLID 600MG/300ML 300 ML IV SCH (04:02)
[2022-04-27 05:00] VITALS: BP 98/50
[2022-04-27] MEDS: HYDROcodone-ACET 5/325MG TAB PO PRN ×2 (06:35→14:10)
[2022-04-27] MEDS: Ensure Enlive Strawberry 8oz Bottle PO SCH ×2 (08:00→12:00)
[2022-04-27 09:00] VITALS: BP 129/65
[2022-04-27] MEDS: MEROPENEM 1GM IVPB 100 ML IV SCH (09:02)
[2022-04-27] MEDS: FAMOTIDINE (10MG/ML) 2ML VL IV SCH (09:03)
[2022-04-27] MEDS: ENOXAPARIN SOD 40 MG/0.4 ML SYRINGE SC SCH (09:04)
[2022-04-27] MEDS: OLANZapine 5 MG TAB PO SCH (09:04)
[2022-04-27] MEDS ORDERED: LINE1TAB6 PO (11:33)
[2022-04-27] MEDS ORDERED: HYDR-4902 PO (11:33)
[2022-04-27 13:00] VITALS: BP 125/65
[2022-04-27 16:04] VITALS: BP 108/55
== END 2022-04-27 15:40 | disposition home or self-care (01) | DRG 252 ==
LOC: ER 16:47 → EDBD 16:47 → TELE 23:22 → WEST WING 04-18 09:12 → TELE-EAST 04-18 09:21 → TELE-WESTW 04-18 15:01 → WEST WING 04-21 10:51
PROVIDERS: ADMIT Nurse Practitioner Family; ATTEND Family Medicine
PROC: 05HB33Z Insertion of Infusion Device into Right Basilic Vein, Percutaneous Approach (ICD-10-PCS; principal; 2022-04-20)
PROC: B54MZZA Ultrasonography of Right Upper Extremity Veins, Guidance (ICD-10-PCS; 2022-04-20)
DX: K94.02 Colostomy infection (principal); E43 Unspecified severe protein-calorie malnutrition; J44.1 Chronic obstructive pulmonary disease with (acute) exacerbation; E87.1 Hypo-osmolality and hyponatremia; E86.0 Dehydration; F41.9 Anxiety disorder, unspecified; I10 Essential (primary) hypertension; Z20.822 Contact with and (suspected) exposure to COVID-19; F20.9 Schizophrenia, unspecified; Y83.8 Other surgical procedures as the cause of abnormal reaction of the patient, or of later complication, without mention of misadventure at the time of the procedure; R55 Syncope and collapse; D75.839 Thrombocytosis, unspecified; Z59.00 Homelessness unspecified; Z86.73 Personal history of transient ischemic attack (TIA), and cerebral infarction without residual deficits; I25.2 Old myocardial infarction; Z85.3 Personal history of malignant neoplasm of breast; Z91.013 Allergy to seafood; Z88.8 Allergy status to other drugs, medicaments and biological substances; Z88.0 Allergy status to penicillin; Z88.6 Allergy status to analgesic agent; Z88.5 Allergy status to narcotic agent; Z88.2 Allergy status to sulfonamides; Z68.1 Body mass index [BMI] 19.9 or less, adult; Z90.11 Acquired absence of right breast and nipple; Y92.89 Other specified places as the place of occurrence of the external cause
CPT/HCPCS: 36415; 70450; 71045; 80053; 80069; 80202; 81001; 82550; 83036; 83735; 83880; 84484; 85025; 87077; 87081; 87186; 87205; 93005; 96361; 96374; G0378; J2185; J2405; J3490